=== PATIENT | male | born 1995 | race African-American/Black ===

== ENCOUNTER 2022-07-07 07:42 | Emergency (ER) | payer SELFPAY ==
[~2022-07-07] VITALS: Ht 167.6 cm; Wt 86.0 kg
[2022-07-07 09:36] VITALS: BP 173/89
[2022-07-07] MEDS: DEXAMETHASONE 10 MG/ML VIAL IV ONE (09:36)
[2022-07-07] MEDS: IBUPROFEN 400MG TABLET PO ONE (09:36)
== END 2022-07-07 11:40 | disposition home or self-care (01) ==
LOC: ER 07:42
DX: R05.9 Cough, unspecified (principal)
CPT/HCPCS: 71045; 96374; 99283; J1100